=== PATIENT | male | born 1990 | race Caucasian/White ===

== ENCOUNTER 2016-06-08 11:40 | Emergency (ER) | payer OTHER, MEDICAID ==
[2016-06-08 12:03] VITALS: BP 121/70; PULSE 70; RESP 16; TEMP 98.2; O2SAT 97
--- NOTE | 2016-06-08 12:21 | UCPHY ---
H & P Time Seen by Provider: 06/08/16 12:18 Patient Type: New HPI/ROS: This patient reports a one-week history of coughing occasionally productive of yellow sputum. He has associated mild wheeze at times and shortness of breath with exertion. He also reports subjective fevers associated with his symptoms. In addition, he has had some vomiting about every other day. At times this is triggered by coughing but other times it just occurs without episodes of coughing spontaneously. He has mild intermittent nausea as well. Despite this he is tolerating p.o. intake. ROS: No high fevers or chills. No other constitutional symptoms. HEENT: No significant sore throat or other complaints. Pulmonary: No respiratory distress or pleuritic pain. GI: No belly pain although he does have mildly loose stools to 3 episodes a day for the past 2 days. No bloody stools. 7 point ROS is otherwise negative. Past Medical/Surgical History: Otherwise healthy Smoking Status: Current every day smoker Physical Exam: Physical Exam Vital signs are normal. General: No acute distress HEENT: Nose: Clear oropharynx no erythema or exudates. Ears: Clear Eyes: Pupils equal and react to light. Extraocular motions are intact. Lungs: Mild rhonchi. Minimal expiratory wheeze. No rales. No respiratory distress. Cardiac: Regular rate and rhythm with no murmur gallop or rub Skin: No rash or pallor. Neuro: Alert and oriented x3 with no sensorimotor deficits. Initial differential diagnosis: Bronchitis, viral versus bacterial, doubt pneumonia, URI with RAD Constitutional: Initial Vital Signs Temperature (C) 36.8 C 06/08/16 12:00 Heart Rate 70 06/08/16 12:00 Respiratory Rate 16 06/08/16 12:00 Blood Pressure 121/70 H 06/08/16 12:00 O2 Sat (%) 97 06/08/16 12:00 O2 Delivery Mode Room Air Allergies/Adverse Reactions: No Known Allergies Allergy (Verified 06/08/16 12:03) Home Medications: Medication Instructions Recorded NO HOME MEDICATIONS 08/01/11 Albuterol Hfa Anes Only [Proair 2 puffs IH Q4 PRN #1 mdi 06/08/16 Hfa Icu (*)] Azithromycin [Zithromax] 250 mg PO DAILY #6 tab 06/08/16 Ondansetron Odt [Zofran Odt] 4 - 8 mg PO Q4PRN PRN #4 tab 06/08/16 MDM/Departure - [facility] ED Course/Re-evaluation: I counseled the patient regarding bronchitis and encouraged him to quit smoking. Patient appears clinically well without evidence of lower respiratory infection clinically - Depart Disposition: Home, Routine, Self-Care Clinical Impression: Acute bronchitis Qualifiers: Bronchitis organism: unspecified organism Qualified Code(s): J20.9 - Acute bronchitis, unspecified Vomiting Qualifiers: Vomiting type: unspecified Vomiting Intractability: non-intractable Nausea presence: with nausea Qualified Code(s): R11.2 - Nausea with vomiting, unspecified Condition: Good Instructions: Acute Bronchitis (ED) Additional Instructions: Diagnosis: Acute bronchitis 2. Vomiting Plan: Humidifier Albuterol inhaler with spacer for cough, wheeze or shortness of breath Zithromax antibiotic Zofran if needed for nausea or vomiting Return for any significant worsening despite the treatment plan Stand Alone Forms: School Excuse Prescriptions: Albuterol Hfa Anes Only [Proair Hfa Icu (*)] 2 puffs IH Q4 PRN #1 mdi PRN Reason: Wheezing Azithromycin [Zithromax] 250 mg PO DAILY #6 tab Ondansetron Odt [Zofran Odt] 4 - 8 mg PO Q4PRN PRN #4 tab PRN Reason: Vomiting Referrals: NONE *PRIMARY CARE P,. [Primary Care Provider] - As per Instructions - PQRS PQRS Measurement: NA
== END 2016-06-08 12:31 | disposition home or self-care (01) ==
LOC: CED 11:40
DX: J20.9 Acute bronchitis, unspecified (principal); R11.10 Vomiting, unspecified; Z72.0 Tobacco use
CPT/HCPCS: G0463-PO

== ENCOUNTER 2016-09-10 12:24 | Emergency (ER) | payer OTHER, MEDICAID ==
--- NOTE | 2016-09-10 12:39 | CPEKG ---
Heart Rate: 51 RR Interval: 1176 P-R Interval: 132 QRSD Interval: 96 QT Interval: 432 QTC Interval: 398 P [place]: -27 QRS [place]: 58 T Wave [place]: 41 EKG Severity - BORDERLINE ECG - EKG Impression: SINUS BRADYCARDIA/SINUS ARRHTHMIA EKG Impression: ST ELEV, PROBABLE NORMAL EARLY REPOL PATTERN EKG Impression: COMPARED WITH 10 JUN 2009, RASHEL MORE PROMINENT Electronically Signed By: Zena Selby 17-Sep-2016 14:01:04
[2016-09-10 12:41] VITALS: TEMP 97
--- NOTE | 2016-09-10 12:45 | CPEKG ---
Heart Rate: 47 RR Interval: 1277 P-R Interval: 124 QRSD Interval: 94 QT Interval: 432 QTC Interval: 382 P [place]: -24 QRS [place]: 55 T Wave [place]: 40 EKG Severity - OTHERWISE NORMAL ECG - EKG Impression: SINUS BRADYCARDIA EKG Impression: ST ELEV, PROBABLE NORMAL EARLY REPOL PATTERN Electronically Signed By: Zena Selby 17-Sep-2016 14:00:07
--- NOTE | 2016-09-10 12:54 | EDPHY ---
HPI/HX/ROS/PE/MDM Narrative: CHIEF COMPLAINT: Syncope HPI: The patient is a 26-year-old male with a history of prior IV drug abuse, multiple visits to urgent care, history of hepatitis and anemia. Of note, patient initially told me that he had no medical problems. Patient states that he became very upset and agitated earlier this morning because of some social issues. This led to what he describes as an anxiety attack. He then called his father very upset and crying. Shortly after that, he apparently lost consciousness. The patient states that he does not know what time this occurred , and cannot even estimate with her was hours or minutes ago. He also tells me initially that he has never passed out before but then shortly afterwards told me that exact same thing happened 1 month ago while and [place], including loss of consciousness. Patient states that he was seen by his primary doctor approximately 1 month ago and was diagnosed with anemia. When asked why he got blood tests that time he states "because of anemia." Patient denies chest pain or head pain at any time. REVIEW OF SYSTEMS: Aside from elements discussed in the HPI, a comprehensive 10-point review of systems was reviewed and is negative. PMH: Includes history of IV drug abuse, hepatitis, anemia, syncope. SOCIAL HISTORY: Patient denies active drug or alcohol abuse. He has a girlfriend. PHYSICAL EXAM: General:Patient is alert, in no acute distress. ENT:Eyes are normal to inspection. ENT inspection normal. Neck: Normal inspection. Full range of motion. Respiratory:No respiratory distress. Breath sounds normal bilaterally. Cardiovascular: Regular rhythm. Bradycardia is noted. Strong peripheral pulses. Normal cap refill. Abdomen:The abdomen is nontender to palpation. There are no peritoneal signs. There are normal bowel sounds. Back: Normal to inspection. No tenderness to palpation. Skin: Normal color. No rash. Warm and dry. Extremities: Normal appearance. Full range of motion. Neuro: Oriented x3. Normal motor function. Normal sensory function. ED Course: EKG was ordered and interpreted by myself. Please see [employer] system for official reading. No Brugada, WPW, heart block or acute NH noted. I recommended to the patient that we trauma blood work to exclude possible life- threatening etiology. The patient seemed very annoyed by this suggestion and asked to speak to his father first. 13:11: Patient states, via his father who is in the room, that he refuses blood work, IV fluids or x-ray of wrist. Patient and father understand that I am unable to rule out any potential life-threatening illness without further testing. The patient has an appointment with his primary doctor next week for blood tests. General Time Seen by Provider: 09/10/16 12:30 Initial Vital Signs: Initial Vital Signs Temperature (C) 36.1 C 09/10/16 12:35 Heart Rate 58 L 09/10/16 12:35 Respiratory Rate 18 09/10/16 12:35 Blood Pressure 132/92 H 09/10/16 12:35 O2 Sat (%) 97 09/10/16 12:35 O2 Delivery Mode Room Air Allergies/Adverse Reactions: No Known Allergies Allergy (Verified 06/08/16 12:03) Home Medications: Medication Instructions Recorded NK [No Known Home Meds] 09/10/16 Departure - Departure Disposition: Home, Routine, Self-Care Clinical Impression: Syncope Qualifiers: Syncope type: unspecified Qualified Code(s): R55 - Syncope and collapse Condition: Good Instructions: Syncope (ED) Additional Instructions: Follow-up with your primary doctor as scheduled within one week. Return to the ED for any recurrence of symptoms or worsening of condition. Referrals: NONE *PRIMARY CARE P,. [Primary Care Provider] - As per Instructions Fercho Bates MD [Medical Doctor] - As per Instructions
[2016-09-10 13:27] VITALS: BP 138/79; PULSE 57; RESP 16; O2SAT 100
== END 2016-09-10 13:19 | disposition home or self-care (01) ==
LOC: CED 12:24
DX: R55 Syncope and collapse (principal)

== ENCOUNTER 2017-09-29 16:16 | Emergency (ER) | payer OTHER, MEDICAID ==
[2017-09-29] MEDS ORDERED: NS 1,000 ML IV ONE (16:36)
[2017-09-29] MEDS ORDERED: FAMOTIDINE 20 MG/NACL 50 ML IV ONE (16:36)
[2017-09-29] MEDS ORDERED: PROMETHAZINE HCL 25 MG/ML INJ IVP ONE (16:36)
[2017-09-29] MEDS ORDERED: ONDANSETRON 4 MG/2 ML VIAL IVP ONE (16:36)
[2017-09-29] MEDS ORDERED: HYDROmorphONE/DILAUDID 2 MG/ML INJ IVP ONE (16:36)
--- NOTE | 2017-09-29 16:43 | EDPHY ---
H & P Time Seen by Provider: 09/29/17 16:28 HPI/ROS: HPI Upper abdominal pain, nausea and vomiting. 26-year-old male by private vehicle. This patient complains of worsening epigastric abdominal pain x2 days. This has been associated with several episodes of nonbilious, nonbloody vomiting. He reports that he was seen in the emergency department in [place] where he lives about 2 weeks ago for this same condition. He was then seen by a primary care physician who prescribed him Bentyl and sucralfate. He has had some relief from this medication since then but states that his pain returned and has been worsening over the last 3 days. Describes the pain as sharp and burning. Denies bloody or melenic stool. He states that he is to be scheduled by his primary care physician for a gastroenterology consultation and endoscopy but this has not happened yet. ROS: Constitutional: No fever, no chills. No weakness. Eyes: No discharge. No changes in vision. ENT: No sore throat. No nasal congestion or rhinorrhea. Respiratory: No cough. No shortness of breath. Cardiac: No chest pain, no palpitations. Gastrointestinal: As above, no diarrhea. Genitourinary: No hematuria. No dysuria or increased frequency with urination. Musculoskeletal: No back pain. No neck pain. No myalgias or arthralgias. Skin: No rashes. Neurological: No headache. No focal weakness or altered sensation. Past medical history: Hepatitis-C, former IV drug abuser, anemia, syncope. Social history: Heavy smoker. As above. Denies alcohol. Here by himself. Works in [employer] locally. Lives in [place]. Physical Exam: General Appearance: Alert, anxious and appears uncomfortable but not in distress. This patient is responding to questions appropriately and in full sentences. This patient appears well-hydrated and well-nourished. Eyes: Pupils equal and round no pallor or injection. No lid edema, erythema or injection. Respiratory: There are no retractions, lungs are clear to auscultation with good air movement bilaterally. Cardiovascular: Regular rate and rhythm. No murmur. Gastrointestinal: Abdomen is soft with moderate epigastric tenderness on palpation, no masses, bowel sounds normal. No focal tenderness at McBurney's point. No Chapman sign. Neurological: Motor sensory function is grossly intact. Cranial nerves are normal. Gait is normal. Skin: Warm and dry, no rashes. Musculoskeletal: Neck is supple and nontender. Extremities are symmetrical. All joints range without pain or impingement. Psychiatric: No agitation. No depression. Database: EKG: Imaging: Upright abdominal x-ray series: No free air. No evidence of obstructive pattern. Some constipation. Otherwise normal. Interpreted by me. Right upper quadrant ultrasound: Normal. Results were discussed with staff radiologist. Procedures: Emergency department course: IV placed. Triage vitals reviewed and are normal. He was started on IV normal saline with 1-2 L to be given over the next 1-2 hours. Secondary to his history of IV drug abuse, narcotics will be avoided. There is a concern that the etiology of his abdominal pain is ulcerative gastritis. I will hold Toradol at this time as well. He will be given IV Phenergan, Pepcid and Zofran initially. Blood work reviewed and unremarkable. 5:35 p.m., patient re-evaluated. Resting comfortably in watching TV. He states he feels better. Results of his blood work and imaging discussed with him. Diagnostic workup in the emergency department is reassuring. Repeat abdominal exam is soft, nontender nondistended. He feels comfortable going home and I feel he is should safe for discharge. I have instructed him to follow up with Gastroenterology through his primary care physician in [place]. Explained that he should get an endoscopy. I have also provided him a referral to our custom dressmaker conventional underwriter today. Return to emergency department precautions thoroughly reviewed with him. All of his questions were answered. He was discharged from the emergency department in good condition. Differential Diagnosis: The differential diagnosis on this patient includes but is not limited to ulcerative versus non ulcerative gastritis. Pancreatitis, perforated peptic ulcer, cholecystitis, acute coronary syndrome, volvulus/bowel obstruction unlikely. This represents a partial list of diagnoses considered. These considerations are based on history, physical exam, past history, reassessment and diagnostic testing. Smoking Status: Current every day smoker Constitutional: Initial Vital Signs Temperature (C) 37 C 09/29/17 16:21 Heart Rate 89 09/29/17 16:21 Respiratory Rate 20 09/29/17 16:21 Blood Pressure 138/91 H 09/29/17 16:21 O2 Sat (%) 95 09/29/17 16:21 O2 Delivery Mode Room Air Allergies/Adverse Reactions: No Known Allergies Allergy (Verified 09/29/17 16:21) Home Medications: Medication Instructions Recorded Promethazine HCl [Phenergan 25mg 25 mg PO Q4-6PRN PRN #12 tab 09/29/17 (*)] Sucralfate 09/29/17 Medical Decision Making - Data Points Laboratory Results: Laboratory Results 09/29/17 16:45 09/29/17 16:45 09/29/17 09/29/17 16:45 16:45 WBC 8.72 10^3/uL 10^3/uL (3.80-9.50) RBC 5.11 10^6/uL 10^6/uL (4.40-6.38) Hgb 15.5 g/dL g/dL (13.7-17.5) Hct 43.1 % % (40.0-51.0) MCV 84.3 fL fL (81.5-99.8) MCH 30.3 pg pg (27.9-34.1) MCHC 36.0 g/dL g/dL (32.4-36.7) RDW 13.1 % % (11.5-15.2) Plt Count 225 10^3/uL 10^3/uL (150-400) MPV 8.8 fL fL (8.7-11.7) Neut % (Auto) 67.5 % % (39.3-74.2) Lymph % (Auto) 24.3 % % (15.0-45.0) [place] % (Auto) 7.5 % % (4.5-13.0) Eos % (Auto) 0.2 % L % (0.6-7.6) Baso % (Auto) 0.3 % % (0.3-1.7) Nucleat RBC Rel Count 0.0 % % (0.0-0.2) Absolute Neuts (auto) 5.88 10^3/uL 10^3/uL (1.70-6.50) Absolute Lymphs (auto) 2.12 10^3/uL 10^3/uL (1.00-3.00) Absolute Monos (auto) 0.65 10^3/uL 10^3/uL (0.30-0.80) Absolute Eos (auto) 0.02 10^3/uL L 10^3/uL (0.03-0.40) Absolute Basos (auto) 0.03 10^3/uL 10^3/uL (0.02-0.10) Absolute Nucleated RBC 0.00 10^3/uL 10^3/uL (0-0.01) Immature Gran % 0.2 % % (0.0-1.1) Immature Gran # 0.02 10^3/uL 10^3/uL (0.00-0.10) Sodium 140 mEq/L mEq/L (135-145) Potassium 3.8 mEq/L mEq/L (3.3-5.0) Chloride 107 mEq/L mEq/L (97-110) Carbon Dioxide 19 mEq/l L mEq/l (22-31) Anion Gap 14 mEq/L mEq/L (8-16) BUN 17 mg/dL mg/dL (7-23) Creatinine 0.9 mg/dL mg/dL (0.7-1.3) Estimated GFR > 60 Glucose 136 mg/dL H mg/dL (70-100) Calcium 10.2 mg/dL mg/dL (8.5-10.4) Total Bilirubin 0.9 mg/dL mg/dL (0.1-1.4) Conjugated Bilirubin 0.3 mg/dL mg/dL (0.0-0.5) Unconjugated Bilirubin 0.6 mg/dL mg/dL (0.0-1.1) AST 19 IU/L IU/L (17-59) ALT 27 IU/L IU/L (21-72) Alkaline Phosphatase 59 IU/L IU/L (38-126) Total Protein 7.9 g/dL g/dL (6.3-8.2) Albumin 4.6 g/dL g/dL (3.5-5.0) Lipase 28 IU/L IU/L (23-300) Medications Given: Discontinued Medications Sodium Chloride (Ns) 1,000 mls @ 0 mls/hr IV EDNOW ONE; Wide Open PRN Reason: Protocol Stop: 09/29/17 16:37 Last Admin: 09/29/17 17:16 Dose: 1,000 mls Famotidine/Sodium Chloride (Pepcid 20 Mg (Premix)) 50 mls @ 200 mls/hr IV EDNOW ONE Stop: 09/29/17 16:50 Last Admin: 09/29/17 17:16 Dose: 50 mls Ondansetron HCl (Zofran) 4 mg IVP EDNOW ONE Stop: 09/29/17 16:37 Last Admin: 09/29/17 17:17 Dose: 4 mg Promethazine HCl (Phenergan) 6.25 mg IVP EDNOW ONE Stop: 09/29/17 16:37 Last Admin: 09/29/17 17:16 Dose: 6.25 mg Departure - Departure Disposition: Home, Routine, Self-Care Clinical Impression: Upper abdominal pain, Gastritis Condition: Good Instructions: Gastritis (ED), Acute Abdominal Pain (ED) Additional Instructions: Read and follow provided instructions. Follow-up with your primary care physician in 1-2 days for re-evaluation. You should be referred to a custom dressmaker for endoscopy. I have provided you the contact information to our on-call custom dressmaker. Call for appointment as discussed. Continue your medication as prescribed. Return to the emergency department for worsening pain, vomiting and inability to keep fluids down despite medications, bloody or black stool or other serious concerns. Referrals: NONE *PRIMARY CARE P,. [Primary Care Provider] - As per Instructions Don Garcia MD [Medical Doctor] - As per Instructions Prescriptions: Promethazine HCl [Phenergan 25mg (*)] 25 mg PO Q4-6PRN PRN #12 tab PRN Reason: For Nausea & Vomiting
[2017-09-29 17:16] LABS: PLATELET COUNT 225 10^3/uL (150-400)
[2017-09-29 17:44] VITALS: BP 135/88
== END 2017-09-29 17:44 | disposition home or self-care (01) ==
DX: K29.70 Gastritis, unspecified, without bleeding (principal); E86.9 Volume depletion, unspecified; F17.200 Nicotine dependence, unspecified, uncomplicated
CPT/HCPCS: J2405; J2550

== ENCOUNTER 2018-06-24 06:46 | Emergency (ER) | payer MEDICAID | END 2018-06-24 07:40 | disposition home or self-care (01) | LOC: CED 06:46 ==

== ENCOUNTER 2018-07-10 11:46 | Emergency (ER) | payer MEDICAID ==
[2018-07-10] MEDS ORDERED: IBUPROFEN 600 MG TAB PO ONE (12:15)
[2018-07-10] MEDS ORDERED: ACETAMINOPHEN 325 MG TAB PO ONE (12:15)
[2018-07-10] MEDS ORDERED: ONDANSETRON DISINTEGRATING 4 MG TAB PO ONE (12:15)
--- NOTE | 2018-07-10 12:53 | EDPHY ---
H & P Time Seen by Provider: 07/10/18 11:52 HPI/ROS: CHIEF COMPLAINT: Multiple complaints HISTORY OF PRESENT ILLNESS: Patient states he has been "very ill" for the past 3 days. He states he has "2 separate things" including congestion with fevers, cough, left rib pain. Also he states over the last 3 days he has had nausea, vomiting, diarrhea "nonstop, I feel extremely dehydrated". He states he has vomited multiple times a day over the last 3 days. His last episode of vomiting he states was at 8:00 a.m. This morning. He also states he has had diarrhea several times a day over the same period of time. Describes fevers and chills but no temperature taken. Was able to eat a bagel this morning. Patient also states he thinks he has a broken rib. He was at [facility] approximately a week ago for a asthma exacerbation and had a syncopal episode. He did get a CT scan of the head at that time but no chest x-ray. He states his lower chest/rib hurts a great deal. He has taken no pain medications other than Mucinex over the last few days. Patient was seen here on the 24 of June for complaints of oral lesions. He tells me he has an appointment with the dentist this week. Contents of 10 point review of systems otherwise negative except for what is mentioned in HPI. General Appearance: Alert, no distress. Eyes: Pupils equal and round no pallor or injection. ENT, Mouth: Mucous membranes moist. No obvious oral lesions. No cervical lymphadenopathy. Respiratory: There are no retractions, lungs are clear to auscultation. Tenderness to palpation left lateral and anterior chest wall. No crepitus, ecchymosis, deformity. Cardiovascular: Regular rate and rhythm. Gastrointestinal: Abdomen is soft and nontender, no masses, bowel sounds normal. Neurological: Awake, alert, cranial nerves intact, no focal deficits. Skin: Warm and dry, no rashes. Musculoskeletal: Neck is supple nontender. Extremities are symmetrical, full range of motion, no edema. Psychiatric: Patient is oriented X 3, there is no agitation. Medical/surgical history: Hepatitis C treated and in remission. Former IV drug user. Asthma. Social history: Heavy smoker, uses marijuana, social EtOH. Smoking Status: Heavy smoker Constitutional: Initial Vital Signs Temperature (C) 36.8 C 07/10/18 11:51 Heart Rate 95 07/10/18 11:51 Respiratory Rate 16 07/10/18 11:51 Blood Pressure 120/81 H 07/10/18 11:51 O2 Sat (%) 96 07/10/18 11:51 O2 Delivery Mode Room Air Allergies/Adverse Reactions: No Known Allergies Allergy (Verified 07/10/18 11:57) Home Medications: Medication Instructions Recorded Neurontin 600 TID 07/10/18 Medical Decision Making - Diagnostics Imaging Results: Imaging Impressions Chest X-Ray 07/10/18 12:15 Impression: Clear lungs. No pneumonia or effusion. Imaging: I viewed and interpreted images myself Differential Diagnosis: Differential diagnosis includes but is not limited to influenza, rib fracture, gastroenteritis, dehydration. After evaluation patient vital signs including temperature and heart rate within normal limits. Influenza testing negative. Chest x-ray without signs of pneumonia, rib fracture, pneumothorax. Despite patient's claim of nausea, vomiting, diarrhea he was able to take p.o. Readily and was unable to produce stool sample. No signs of significant dehydration. Suggested [id number] analgesics medications for rib pain. Encouraged to continue follow-up with dentist as previously arranged as well as primary care physician if symptoms persist. Stable for discharge. - Data Points Medications Given: Discontinued Medications Ibuprofen (Motrin) 600 mg PO EDNOW ONE Stop: 07/10/18 12:16 Last Admin: 07/10/18 12:53 Dose: 600 mg Ondansetron HCl (Zofran Odt) 4 mg PO EDNOW ONE Stop: 07/10/18 12:16 Last Admin: 07/10/18 12:25 Dose: 4 mg Point of Care Test Results: Influenza PCR Flu Nasal Swab Collection Date 07/10/18 Flu Nasal Swab Collection Time 12:20 Influenza A Result Not Detected Influenza B Result Not Detected Departure - Departure Clinical Impression: Nausea vomiting and diarrhea Rib contusion Qualifiers: Encounter type: initial encounter Laterality: left Qualified Code(s): S20.212A - Contusion of left front wall of thorax, initial encounter Condition: Good Instructions: Acute Nausea and Vomiting (ED), Rib Contusion (ED) Additional Instructions: Advance diet slowly, stay with clear liquids until well tolerated. Ibuprofen and Tylenol for rib pain. Return to the emergency department if you are vomiting and cannot keep fluids down or if he developed fever or severe difficulty breathing. Follow-up with your dentist as scheduled. Referrals: Rosa Ross MD [Primary Care Provider] - As per Instructions
[2018-07-10 14:11] VITALS: BP 118/78
== END 2018-07-10 14:10 | disposition home or self-care (01) ==
LOC: CED 11:46
DX: R11.2 Nausea with vomiting, unspecified (principal); R19.7 Diarrhea, unspecified
CPT/HCPCS: 71046-PO; 87400-QW-ER; 99283-ER

== ENCOUNTER 2018-08-28 01:24 | Emergency (ER) | payer MEDICAID ==
[2018-08-28 01:45] VITALS: BP 123/76
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
[2018-08-28] MEDS ORDERED: IBUPROFEN 600 MG TAB PO ONE ×3 (02:40→02:50)
[2018-08-28] MEDS ORDERED: KETOROLAC 15 MG/1 ML SDV IVP ONE (03:47)
== END 2018-08-28 03:16 | disposition home or self-care (01) ==
LOC: CED 01:24
DX: S63.501A Unspecified sprain of right wrist, initial encounter (principal); S83.502A Sprain of unspecified cruciate ligament of left knee, initial encounter; V18.0XXA Pedal cycle driver injured in noncollision transport accident in nontraffic accident, initial encounter; Y93.55 Activity, bike riding
CPT/HCPCS: 73110-PO; 73130-PO; 73562-PO; 99284-ER; L1832-ER; L3984-ER